=== PATIENT | female | born 1975 | race African-American/Black ===

== ENCOUNTER → 2018-07-18 | Emergency (ER) | payer OTHER ==
[2018-07-18 10:38] VITALS: BP 108/72; PULSE 82; TEMP 98.1; BMI 34.1
--- NOTE | 2018-07-18 10:54 | PDOC ---
History of Present Illness - General Chief Complaint: Vaginal Bleeding Stated Complaint: VAGINAL BLEEDING Time Seen by Provider: 07/18/18 10:48 History Source: Patient Exam Limitations: No Limitations - History of Present Illness Initial Comments: 07/18/18 14:33 Pt is a 43 y/o F, G10,P4,A5, who presents to the ED for vaginal bleeding since Saturday. Pt states that she had a positive home test after having missed her depo shot in April. She believes she is 6-7 weeks . States that she has been passing clots since Saturday. Denies fevers, chills, abdominal pain, nausea, vomiting, diarrhea, frequency, urgency and hematuria. [facility] Past History - Travel Traveled outside of the country in the last 30 days: No Close contact w/someone who was outside of country & ill: No - Past Medical History Allergies/Adverse Reactions: Allergies Allergy/AdvReac Type Severity Reaction Status Date / Time clindamycin Allergy Verified 07/18/18 10:34 NSAIDS (Non-Steroidal Allergy Verified 07/18/18 10:34 Anti-Inflamma Penicillins Allergy Verified 07/18/18 10:34 Home Medications: Ambulatory Orders Albuterol Sulfate Inhaler - [Ventolin Hfa Inhaler -] 1 - 2 inh PO QID 07/18/18 Asthma: Yes COPD: No Other medical history: arthritis, 8 herniated discs - Suicide/Smoking/Psychosocial Hx Smoking History: Former smoker Have you smoked in the past 12 months: Yes If you are a former smoker, when did you quit?: 05/08 Information on smoking cessation initiated: No Review of Systems - Review of Systems Able to Perform ROS?: Yes Comments:: 07/18/18 10:53 CONSTITUTIONAL: Absent: fever, chills, diaphoresis, generalized weakness, malaise, loss of appetite HEENT: Absent: rhinorrhea, nasal congestion, throat pain, throat swelling, difficulty swallowing, mouth swelling, ear pain, eye pain, visual Changes CARDIOVASCULAR: Absent: chest pain, loss of consciousness, palpitations, irregular heart rate, peripheral edema RESPIRATORY: Absent: cough, shortness of breath, dyspnea with exertion, orthopnea, wheezing, stridor, hemoptysis GASTROINTESTINAL: Absent: abdominal pain, abdominal distension, nausea, vomiting, diarrhea, constipation, melena, hematochezia GENITOURINARY: Present: (+) home test, vaginal bleeding Absent: dysuria, frequency, urgency, hesitancy, hematuria, flank pain, genital pain MUSCULOSKELETAL: Absent: myalgia, arthralgia, joint swelling SKIN: Absent: rash, itching, pallor HEMATOLOGIC/IMMUNOLOGIC: Absent: easy bleeding, easy bruising, lymphadenopathy, frequent infections ENDOCRINE: Absent: unexplained weight gain, unexplained weight loss, heat intolerance, cold intolerance NEUROLOGIC: Absent: headache, focal weakness or paresthesias, dizziness, unsteady gait, seizure, mental status changes, bladder or bowel incontinence PSYCHIATRIC: Absent: anxiety, depression, suicidal or homicidal ideation, hallucinations. Is the patient limited Uzbek proficient: No *Physical Exam - Vital Signs Last Vital Signs Temp Pulse Resp BP Pulse Ox 98.1 F 82 18 108/72 98 07/18/18 10:37 07/18/18 10:37 07/18/18 10:37 07/18/18 10:37 07/18/18 10:37 - Physical Exam Comments: 07/18/18 10:54 GENERAL: Well developed, well nourished. Awake and alert. No acute distress. HEENT: Normocephalic, atraumatic. PERRLA, EOMI. No conjunctival pallor. Sclera are non- icteric. Moist mucous membranes. Oropharynx is clear. NECK: Supple. Full ROM. No JVD. Carotid pulses 2+ and symmetric, without bruits. No thyromegaly. No lymphadenopathy. CARDIOVASCULAR: Regular rate and rhythm. No murmurs, rubs, or gallops. Distal pulses are 2+ and symmetric. PULMONARY: No evidence of respiratory distress. Lungs clear to auscultation bilaterally. No wheezing, rales or rhonchi. ABDOMINAL: Soft. Non-tender. Non-distended. No rebound or guarding. No organomegaly. Normoactive bowel sounds MUSCULOSKELETAL Normal range of motion at all joints. No bony deformities or tenderness. No CVA tenderness. EXTREMITIES: No cyanosis. No clubbing. No edema. No calf tenderness. SKIN: Warm and dry. Normal capillary refill. No rashes. No jaundice. NEUROLOGICAL: Alert, awake, appropriate. Cranial nerves 2-12 intact. No deficits to light touch and temperature in face, upper extremities and lower extremities. No motor deficits in the in face, upper extremities and lower extremities. Normoreflexic in the upper and lower extremities. Normal speech. Toes are down- going bilaterally. Gait is normal without ataxia. PSYCHIATRIC: Cooperative. Good eye contact. Appropriate mood and affect. Moderate Sedation - Procedure Monitoring Vital Signs: Procedure Monitoring Vital Signs Temperature 98.1 F 07/18/18 10:37 Pulse Rate 82 07/18/18 10:37 Respiratory Rate 18 07/18/18 10:37 Blood Pressure 108/72 07/18/18 10:37 O2 Sat by Pulse Oximetry (%) 98 07/18/18 10:37 ED Treatment Course - LABORATORY CBC & Chemistry Diagram: 07/18/18 11:30 Medical Decision Making - Medical Decision Making 07/18/18 12:34 Pt is a 43 y/o F, [id number], who presents to the ED for vaginal bleeding with clots since Saturday07/12/18. -On exam, pt with benign belly exam. -Pt went to US before pelvic exam could be done -Labs unremarkable, H&H stable, no leukocytosis -Blood type O positive 07/18/18 14:03 -Patient eloped from the ED prior to receiving US results. -Pt with missed on her US with an IUP measuring approximately 6 weeks and no heart rate was present -Beta HCG is < 1 at this time. 07/18/18 14:29 -Pt called about results. States she had to leave the ED for a family emergency -Explained that she is having a missed -[facility] -Advised that she if were to experience fevers, worsening abdominal pain, vomiting, increased vaginal bleeding, that she should return to the ED for further evaluation. *DC/Admit/Observation/Transfer Diagnosis at time of Disposition: Missed - Discharge Dispostion Disposition: ELOPED Decision to Admit order: No - Referrals Referrals: Kenn Santizo MD [Primary Care Provider] - - Patient Instructions - Post Discharge Activity
--- NOTE | 2018-07-18 11:44 | PDOC ---
*Physical Exam - Vital Signs Last Vital Signs Temp Pulse Resp BP Pulse Ox 98.1 F 82 18 108/72 98 07/18/18 10:37 07/18/18 10:37 07/18/18 10:37 07/18/18 10:37 07/18/18 10:37 ED Treatment Course - LABORATORY CBC & Chemistry Diagram: 07/18/18 11:30 Medical Decision Making - Medical Decision Making 07/18/18 11:44 MS Meeks is a 43 yo F (+) home test Presenting to the ER today with a complaint of vaginal bleeding 07/18/18 11:45 07/18/18 11:45 LAbs sent US pending 07/18/18 12:40 Laboratory Tests 07/18/18 07/18/18 11:30 11:40 Beta HCG, Quant < 1.0 Urine Blood 2+ H Urine Nitrite Negative Ur Leukocyte Esterase Negative Urine WBC (Auto) 1 Urine RBC (Auto) 13 US: demise 6 weeks Manufacturing Systems Engineer consult Inevitable 07/18/18 14:08 Attempted to see this patient to review results Can not find this patient *DC/Admit/Observation/Transfer Diagnosis at time of Disposition: Missed - Discharge Dispostion Disposition: ELOPED - Referrals Referrals: Kenn Santizo MD [Primary Care Provider] - - Patient Instructions - Post Discharge Activity
[2018-07-18 11:47] LABS: BASO % 1.1 % (0-2.0); EOS % 2.2 % (0-4.5); HEMATOCRIT 34.2 % (32.4-45.2); LYMPH % 36.9 % (8-40); MCH 30.7 pg (25.7-33.7); MEAN CELL VOLUME 87.8 fl (80-96); MEAN PLT VOLUME 7.2 fl (7.5-11.1); MONO % 6.5 % (3.8-10.2); NEUT % 53.3 % (42.8-82.8); PLATELET COUNT 353 K/MM3 (134-434); RDW 13.5 % (11.6-15.6); WHITE BLOOD COUNT 6.2 K/mm3 (4.0-10.0)
[2018-07-18 11:55] LABS: URINE APPEARANCE CLEAR; URINE BILIRUBIN NEGATIVE (<2.0 mg/dL); URINE COLOR YELLOW; URINE GLUCOSE (UA) NEGATIVE (NEGATIVE); URINE KETONE NEGATIVE (NEGATIVE); URINE LEUK ESTERASE NEGATIVE (NEGATIVE); URINE NITRITE NEGATIVE (NEGATIVE); URINE PROTEIN 1+ (NEGATIVE); URINE UROBILINOGEN NEGATIVE mg/dL (0.2-1.0)
[2018-07-18 12:00] LABS: EPI CELLS RARE /HPF (FEW); URINE MUCUS FEW
== END | disposition left against medical advice (07) ==
LOC: JER 10:25
DX: O26.891 Other specified pregnancy related conditions, first trimester (principal); O02.1 Missed abortion; Z3A.01 Less than 8 weeks gestation of pregnancy
CPT/HCPCS: 36415; 76817-TC; 81003; 81015; 84702; 85025; 86850; 86900; 86901; 87086; 99281-25